=== PATIENT | male | born 1995 | race American Indian/Alaskan Native ===

== ENCOUNTER 2019-06-03 02:36 | Emergency (ER) | payer SELFPAY ==
[2019-06-03 02:45] VITALS: BP 121/75
[2019-06-03] MEDS ORDERED: DECADRON IM ONE (03:28)
[2019-06-03] MEDS ORDERED: TRIMOX PO ONE (03:29)
[2019-06-03] MEDS ORDERED: IBUPROFEN PO ONE (03:29)
--- NOTE | 2019-06-03 03:57 | Emergency Department Report ---
ED ENT HPI - General Chief complaint: Sore Throat Stated complaint: SORE THROAT Time Seen by Provider: 06/03/19 03:28 Source: patient Mode of arrival: Ambulatory Limitations: No Limitations - History of Present Illness Initial comments: Patient is 24-year-old male who presents for dysphagia, sore throat 3 days with fever , no MAXIMUM TEMPERATURE noted. Temp amount of stool yesterday . No nausea no vomiting . Sometimes exacerbated by swallowing. Symptoms are relieved by mouth MD complaint: sore throat Onset/Timin -: days(s) Location: throat Severity: moderate Severity scale (0 -10): 5 Quality: burning, sharp Consistency: constant Improves with: none Worsens with: swallowing Associated Symptoms: fever, pain with swallowing, sore throat - Related Data Previous Rx's Medication Instructions Recorded Last Taken Type Amoxicillin [Trimox CAP] 500 mg PO Q8H 10 Days #30 capsule 06/03/19 Unknown Rx Benzocaine/Mentho [Cepacol X 1 each MM Q2H PRN #3 packet 06/03/19 Unknown Rx Strength] Ibuprofen [Motrin 800 MG tab] 800 mg PO Q8HR PRN 10 Days #30 06/03/19 Unknown Rx tablet dexAMETHasone [Decadron] 4 mg PO BID 2 Days #4 tablet 06/03/19 Unknown Rx Allergies Allergy/AdvReac Type Severity Reaction Status Date / Time No Known Allergies Allergy Unverified 06/03/19 02:42 ED Dental HPI - General Chief complaint: Sore Throat Stated complaint: SORE THROAT Time Seen by Provider: 06/03/19 03:28 Source: patient Mode of arrival: Ambulatory Limitations: No Limitations - Related Data Previous Rx's Medication Instructions Recorded Last Taken Type Amoxicillin [Trimox CAP] 500 mg PO Q8H 10 Days #30 capsule 06/03/19 Unknown Rx Benzocaine/Mentho [Cepacol X 1 each MM Q2H PRN #3 packet 06/03/19 Unknown Rx Strength] Ibuprofen [Motrin 800 MG tab] 800 mg PO Q8HR PRN 10 Days #30 06/03/19 Unknown Rx tablet dexAMETHasone [Decadron] 4 mg PO BID 2 Days #4 tablet 06/03/19 Unknown Rx Allergies Allergy/AdvReac Type Severity Reaction Status Date / Time No Known Allergies Allergy Unverified 06/03/19 02:42 ED Review of Systems ROS: Stated complaint: SORE THROAT Other details as noted in HPI Constitutional: fever. denies: chills Eyes: denies: eye pain, eye discharge, vision change ENT: throat pain Respiratory: denies: cough, shortness of breath, wheezing Cardiovascular: denies: chest pain, palpitations Endocrine: no symptoms reported Gastrointestinal: denies: abdominal pain, nausea, vomiting, diarrhea Genitourinary: denies: urgency, dysuria Musculoskeletal: denies: back pain, joint swelling, arthralgia Skin: denies: rash, lesions Neurological: denies: headache, weakness, paresthesias Psychiatric: denies: anxiety, depression Hematological/Lymphatic: denies: easy bleeding, easy bruising ED Past Medical Hx - Past Medical History Previous Medical History?: No - Surgical History Past Surgical History?: No - Social History Smoking Status: Current Every Day Smoker Substance Use Type: Alcohol - Medications Home Medications: Home Medications Medication Instructions Recorded Confirmed Last Taken Type Amoxicillin [Trimox CAP] 500 mg PO Q8H 10 Days #30 capsule 06/03/19 Unknown Rx Benzocaine/Mentho [Cepacol X 1 each MM Q2H PRN #3 packet 06/03/19 Unknown Rx Strength] Ibuprofen [Motrin 800 MG tab] 800 mg PO Q8HR PRN 10 Days #30 06/03/19 Unknown Rx tablet dexAMETHasone [Decadron] 4 mg PO BID 2 Days #4 tablet 06/03/19 Unknown Rx ED Physical Exam - General Limitations: No Limitations General appearance: alert - Head Head exam: Present: atraumatic, normocephalic - Eye Eye exam: Present: normal appearance, PERRL, EOMI Pupils: Present: normal accommodation - ENT ENT exam: Present: mucous membranes moist, TM's normal bilaterally, normal external ear exam - Expanded ENT Exam Expanded Ear exam: Present: normal external inspection Mouth exam: Absent: trismus Throat exam: Positive: tonsillar erythema, tonsillomegaly, tonsillar exudate, other (uvula mild line mild swelling no peritonsilar abscess no stridor no wheezing ). Negative: R peritonsillar mass, L peritonsillar mass - Neck Neck exam: Present: normal inspection, full ROM, lymphadenopathy. Absent: tenderness, meningismus, thyromegaly - Respiratory Respiratory exam: Present: normal lung sounds bilaterally. Absent: respiratory distress, wheezes, stridor, chest wall tenderness - Cardiovascular Cardiovascular Exam: Present: regular rate, normal rhythm, normal heart sounds. Absent: systolic murmur, diastolic murmur, rubs, gallop - GI/Abdominal GI/Abdominal exam: Present: soft, normal bowel sounds. Absent: distended, tenderness, bruit, hernia - Rectal Rectal exam: Present: deferred - Extremities Exam Extremities exam: Present: normal inspection, full ROM, normal capillary refill. Absent: tenderness, pedal edema, joint swelling, calf tenderness - Back Exam Back exam: Present: normal inspection, full ROM. Absent: tenderness, rash noted - Neurological Exam Neurological exam: Present: alert, oriented X3, CN II-XII intact, normal gait - Psychiatric Psychiatric exam: Present: normal affect, normal mood - Skin Skin exam: Present: warm, dry, intact, normal color. Absent: rash ED Course Vital Signs 06/03/19 02:44 Temperature 98.6 F Pulse Rate 90 Respiratory 18 Rate Blood Pressure 121/75 O2 Sat by Pulse 98 Oximetry ED Medical Decision Making - Medical Decision Making This is pharyngitis plan amoxicillin , Decadron, ibuprofen. Follow up with PCP in 2 to 3 days. Return to ED should symptoms worsen . Patient verbalized agreement and understanding of discharge plan patient received a home stable condition at this time Critical care attestation.: If time is entered above; I have spent that time in minutes in the direct care of this critically ill patient, excluding procedure time. ED Disposition Clinical Impression: Pharyngitis Qualifiers: Pharyngitis/tonsillitis etiology: unspecified etiology Qualified Code(s): J02.9 - Acute pharyngitis, unspecified Disposition: TO HOME OR SELFCARE Is pt being admited?: No Does the pt Need Aspirin: No Condition: Stable Instructions: Pharyngitis (ED) Prescriptions: Benzocaine/Mentho [Cepacol X Strength] 1 each MM Q2H PRN #3 packet PRN Reason: Throat Pain dexAMETHasone [Decadron] 4 mg PO BID 2 Days #4 tablet Ibuprofen [Motrin 800 MG tab] 800 mg PO Q8HR PRN 10 Days #30 tablet PRN Reason: pain fever Amoxicillin [Trimox CAP] 500 mg PO Q8H 10 Days #30 capsule Referrals: BHAVESH JACINTO MD [Primary Care Provider] - 3-5 Days Forms: Work/School Release Form(ED) Time of Disposition: 04:04
== END 2019-06-03 04:16 | disposition home or self-care (01) ==
LOC: ED 02:36
DX: J02.9 Acute pharyngitis, unspecified (principal)
CPT/HCPCS: 87116; 87430; 96372; 99283; J1100

== ENCOUNTER 2022-03-12 19:52 | Emergency (ER) | payer BC ==
[2022-03-12 21:28] VITALS: BP 115/68
--- NOTE | 2022-03-12 22:50 | Emergency Department Report ---
- General Chief Complaint: Nosebleed Stated Complaint: NOSE BLEED Source: patient Mode of arrival: Ambulatory Limitations: No Limitations - History of Present Illness Initial Comments: Patient is a 27-year-old -[place] male with no past medical history presents to the ED with complaint of acute onset persistent nasal and sinus congestion, dry cough and intermittent nosebleed for the last 3 days. Patient states that he has been blowing his nose and thereafter develops nosebleed. Patient states that the last time he had nosebleed was 24 hours ago. Patient denies chest pain or shortness of breath, fever, chills, nausea and vomiting or dizziness, headache, sore throat, diarrhea or abdominal pain. MD Complaint: cough, rhinorrhea, nasal congestion, sinus pain, other (Nosebleed) -: Sudden, days(s) (3) Severity: moderate Severity scale (0 -10): 4 Quality: dull, aching Consistency: intermittent Improves With: nothing Worsens With: nothing Associated Symptoms: denies other symptoms, rhinorrhea, nasal congestion, cough, epistaxis. denies: fever, chills, myalgias, headache, sore throat, stiff neck, chest pain, shortness of breath, abdominal pain, nausea, diarrhea, dysuria, rash, hoarseness, ear pain, other Treatments Prior to Arrival: none - Related Data Previous Rx's Medication Instructions Recorded Last Taken Type Amoxicillin [Trimox CAP] 500 mg PO Q8H 10 Days #30 capsule 06/03/19 Unknown Rx Benzocaine/Mentho [Cepacol X 1 each MM Q2H PRN #3 packet 06/03/19 Unknown Rx Strength] Ibuprofen [Motrin 800 MG tab] 800 mg PO Q8HR PRN 10 Days #30 06/03/19 Unknown Rx tablet dexAMETHasone [Decadron] 4 mg PO BID 2 Days #4 tablet 06/03/19 Unknown Rx Benzonatate [Tessalon Perles] 100 mg PO Q8HR #30 cap 03/12/22 Unknown Rx Cetirizine HCl [Zyrtec 10mg tab] 10 mg PO DAILY #30 tab 03/12/22 Unknown Rx Fluticasone [Flonase] 1 spray NS QDAY #1 bottle 03/12/22 Unknown Rx Allergies Allergy/AdvReac Type Severity Reaction Status Date / Time No Known Allergies Allergy Verified 03/12/22 21:28 ED Review of Systems ROS: Stated complaint: NOSE BLEED Other details as noted in HPI Constitutional: denies: chills, fever Eyes: denies: eye pain, eye discharge, vision change ENT: epistaxis, congestion. denies: ear pain, throat pain Respiratory: cough. denies: shortness of breath, wheezing Cardiovascular: denies: chest pain, palpitations Endocrine: no symptoms reported Gastrointestinal: denies: abdominal pain, nausea, vomiting, diarrhea Genitourinary: denies: urgency, dysuria Musculoskeletal: denies: back pain, joint swelling, arthralgia Skin: denies: rash, lesions Neurological: denies: headache, weakness, paresthesias Psychiatric: denies: anxiety, depression Hematological/Lymphatic: denies: easy bleeding, easy bruising ED Past Medical Hx - Past Medical History Previous Medical History?: No - Surgical History Past Surgical History?: No - Social History Smoking Status: Never Smoker Substance Use Type: None - Medications Home Medications: Home Medications Medication Instructions Recorded Confirmed Last Taken Type Amoxicillin [Trimox CAP] 500 mg PO Q8H 10 Days #30 capsule 06/03/19 Unknown Rx Benzocaine/Mentho [Cepacol X 1 each MM Q2H PRN #3 packet 06/03/19 Unknown Rx Strength] Ibuprofen [Motrin 800 MG tab] 800 mg PO Q8HR PRN 10 Days #30 06/03/19 Unknown Rx tablet dexAMETHasone [Decadron] 4 mg PO BID 2 Days #4 tablet 06/03/19 Unknown Rx Benzonatate [Tessalon Perles] 100 mg PO Q8HR #30 cap 03/12/22 Unknown Rx Cetirizine HCl [Zyrtec 10mg tab] 10 mg PO DAILY #30 tab 03/12/22 Unknown Rx Fluticasone [Flonase] 1 spray NS QDAY #1 bottle 03/12/22 Unknown Rx ED Physical Exam - General Limitations: No Limitations General appearance: alert, in no apparent distress - Head Head exam: Present: atraumatic, normocephalic, normal inspection - Eye Eye exam: Present: normal appearance, PERRL, EOMI Pupils: Present: normal accommodation - ENT ENT exam: Present: normal orophraynx, mucous membranes moist, TM's normal bilaterally, normal external ear exam, other (Grossly congested nasal passages) - Neck Neck exam: Present: normal inspection, full ROM. Absent: tenderness - Respiratory Respiratory exam: Present: normal lung sounds bilaterally. Absent: respiratory distress, wheezes, rales, rhonchi, chest wall tenderness, accessory muscle use - Cardiovascular Cardiovascular Exam: Present: regular rate, normal rhythm, normal heart sounds. Absent: systolic murmur, diastolic murmur, rubs, gallop - GI/Abdominal GI/Abdominal exam: Present: soft, normal bowel sounds. Absent: tenderness, guarding, rebound, hyperactive bowel sounds, hypoactive bowel sounds, organomegaly - Extremities Exam Extremities exam: Present: normal inspection, full ROM, normal capillary refill. Absent: tenderness - Back Exam Back exam: Present: normal inspection, full ROM. Absent: tenderness, CVA tenderness (R), CVA tenderness (L), muscle spasm, paraspinal tenderness - Neurological Exam Neurological exam: Present: alert, oriented X3, CN II-XII intact, normal gait, reflexes normal - Psychiatric Psychiatric exam: Present: normal affect, normal mood - Skin Skin exam: Present: warm, dry, intact, normal color. Absent: rash ED Course Vital Signs 03/12/22 21:24 Temperature 98.6 F Pulse Rate 66 Respiratory 8 L Rate Blood Pressure 115/68 O2 Sat by Pulse 97 Oximetry ED Medical Decision Making - Medical Decision Making This is a 27-year-old -[place] male with no past medical history presents to the ED with complaint of acute onset persistent nasal and sinus congestion, dry cough and intermittent nosebleed for the last 3 days. Patient states that he has been blowing his nose and thereafter develops nosebleed. Patient states that the last time he had nosebleed was 24 hours ago. In the ED, patient is alert and oriented x3 and is not in any distress. Patient was discharged home on medications based on physical exam findings. Patient was advised to follow-up with his primary care physician in 5 to 7 days for reevaluation or return to the ED immediately if symptoms get worse. - Differential Diagnosis URI; rhinitis; bronchitis; epistaxis Critical care attestation.: If time is entered above; I have spent that time in minutes in the direct care of this critically ill patient, excluding procedure time. ED Disposition Clinical Impression: Acute upper respiratory infection, Acute anterior epistaxis, Acute allergic rhinitis due to pollen Acute bronchitis Qualifiers: Bronchitis organism: other organism Qualified Code(s): J20.8 - Acute bronchitis due to other specified organisms Disposition: 01 HOME / SELF CARE / HOMELESS Is pt being admited?: No Does the pt Need Aspirin: No Condition: Stable Instructions: Acute Bronchitis (ED), Upper Respiratory Infection, Adult, [id number], Allergic Rhinitis, Adult, [id number], Acute Bronchitis, Adult, [id number], Nosebleed, [id number] Additional Instructions: Your symptoms are likely due to upper respiratory infection. Therefore take medication as advised, drink plenty of fluids, follow-up with your primary care physician in 7 to 10 days for reevaluation or return to the ED immediately if symptoms get worse Prescriptions: Fluticasone [Flonase] 1 spray NS QDAY #1 bottle Benzonatate [Tessalon Perles] 100 mg PO Q8HR #30 cap Cetirizine HCl [Zyrtec 10mg tab] 10 mg PO DAILY #30 tab Referrals: [facility] [Provider Group] - 7-10 days Time of Disposition: 22:47 Print Language: CYPRIOT
== END 2022-03-12 23:28 | disposition home or self-care (01) ==
LOC: ED 19:52
DX: J06.9 Acute upper respiratory infection, unspecified (principal); R04.0 Epistaxis; J20.8 Acute bronchitis due to other specified organisms; J30.1 Allergic rhinitis due to pollen; Z79.899 Other long term (current) drug therapy
CPT/HCPCS: 99282